=== PATIENT | male | born 1995 | race Two or more races ===

== ENCOUNTER 2017-07-21 05:54 | Emergency (ER) | payer MEDICAID ==
[~2017-07-21] VITALS: Ht 172.7 cm; Wt 95.5 kg
[2017-07-21] MEDS ORDERED: VISCOUS LIDOCAINE 2% 15 ML UDC MM PRN (07:00)
[2017-07-21] MEDS ORDERED: DEXAMETHASONE 10 MG/ML VIAL IM ONE (07:00)
[2017-07-21] MEDS ORDERED: PENICILLIN G BENZATHINE 1,200,000 UNITS/2ML SYR IM ONE (07:00)
[2017-07-21 07:17] VITALS: BP 139/82
== END 2017-07-21 07:19 | disposition home or self-care (01) ==
LOC: ER 05:54
DX: J02.9 Acute pharyngitis, unspecified (principal)
CPT/HCPCS: 96372; 99284; J0561; J1100